=== PATIENT | female | born 1990 | race Caucasian/White ===

== ENCOUNTER 2016-12-25 23:41 | Emergency (ER) | payer OTHER ==
[2016-12-26 02:10] LABS: HEMOGLOBIN 14.8 gm/dl (12.3-15.3); RED BLOOD COUNT 4.71 M/UL (4.00-5.10); WHITE BLOOD COUNT 14.4 K/UL (4.5-11.0)
[2016-12-26 02:35] LABS: BUN/CREATININE RATIO 13 (0-10)
== END 2016-12-26 05:10 | disposition home or self-care (01) ==
LOC: ER1 23:41
PROVIDERS: Emergency Medicine
DX: S20.211A Contusion of right front wall of thorax, initial encounter (principal); L03.031 Cellulitis of right toe; K60.2 Anal fissure, unspecified; K62.5 Hemorrhage of anus and rectum; F17.210 Nicotine dependence, cigarettes, uncomplicated; Z88.0 Allergy status to penicillin; Y04.2XXA Assault by strike against or bumped into by another person, initial encounter; Y93.01 Activity, walking, marching and hiking
CPT/HCPCS: 36415; 71010; 80053; 80307; 81001; 85025; 87086; 99284

== ENCOUNTER 2020-11-14 05:22 | Inpatient (IN) | payer OTHER ==
[~2020-11-14] VITALS: Ht 160 cm; Wt 81.6 kg
[~2020-11-14 05:22] MED LIST: COLACE 100MG C100 MG PO; IBUPROFEN600 MG PO; LABETALOL HCL200 MG PO; LORTAB 5-325 M1 EACH PO; PEPCID20 MG PO; PHENERGAN 25 MG25 M1 PO; PRENATAL VITAM1 EAC3 PO; TYLENOL325 M1 PO
[2020-11-14 05:36] LABS: HEMOGLOBIN 13.2 gm/dl (12.3-15.3); RED BLOOD COUNT 4.05 M/UL (4.00-5.10); WHITE BLOOD COUNT 12.9 K/UL (4.5-11.0)
[2020-11-14 05:56] LABS: BUN/CREATININE RATIO 18 (0-10)
[2020-11-14] MEDS ORDERED: DOCUSATE SODIU100 MG PO (09:57)
[2020-11-14] MEDS ORDERED: TRANDATE 200 M200 MG PO (09:57)
[2020-11-14] MEDS ORDERED: IBUPROFEN800 MG PO (09:57)
[2020-11-14] MEDS ORDERED: HYDROCODONE-AC1 EAC1 PO (09:57)
[2020-11-15 08:14] LABS: HBSAG SCREEN Negative (Negative); HIV SCREEN 4TH GENERATION WRFX Non Reactive (Non Reactive)
[2020-11-15 09:14] LABS: RPR Non Reactive (Non Reactive); RUBELLA ANTIBODIES, IGG 2.54 index (Immune >0.99)
[2020-11-15 11:51] LABS: HEMOGLOBIN 12.5 gm/dl (12.3-15.3); RED BLOOD COUNT 3.86 M/UL (4.00-5.10); WHITE BLOOD COUNT 9.5 K/UL (4.5-11.0)
[2020-11-15 12:15] LABS: BUN/CREATININE RATIO 14 (0-10)
[2020-11-15 14:14] LABS: TREPONEMA PALLIDUM ANTIBODIES Non Reactive (Non Reactive)
[2020-11-15 19:08] LABS: CHLAMYDIA TRACHOMATIS, NAA Negative (Negative); NEISSERIA GONORRHOEAE, NAA Negative (Negative)
[2020-11-16 20:23] LABS: HEMOGLOBIN 12.4 gm/dl (12.3-15.3); RED BLOOD COUNT 3.88 M/UL (4.00-5.10); WHITE BLOOD COUNT 11.3 K/UL (4.5-11.0)
[2020-11-16 20:53] LABS: BUN/CREATININE RATIO 18 (0-10)
[2020-11-17] MEDS ORDERED: PROZAC40 MG PO (16:44)
[2020-11-17] MEDS ORDERED: PROAIR HFA8.5 GM INH (16:44)
[2020-11-17] MEDS ORDERED: WIXELA 250-501 EACH INH (16:44)
[2020-11-18] MEDS ORDERED: PROCARDIA XL30 MG PO (07:16)
[2020-11-18] MEDS ORDERED: HYDROCODONE-AC1 EAC1 PO (08:18)
[2020-11-18 11:10] LABS: AMPHETAMINE Positive (.); AMPHETAMINE GC/MS CONF 2352 ng/mL (Cutoff=500); AMPHETAMINES Positive (Cutoff=1000); AMPHETAMINES, URINE See Final Results ng/mL (Cutoff=1000); BARBITURATE Negative ng/mL (Cutoff=200); BENZODIAZEPINES Negative ng/mL (Cutoff=200); CANNABINOIDS Negative ng/mL (Cutoff=20); COCAINE (METABOLITE) Negative ng/mL (Cutoff=300); CREATININE 94.9 mg/dL (20.0-300.0); MEPERIDINE Negative ng/mL (Cutoff=200); METHADONE Negative ng/mL (Cutoff=300); METHAMPHETAMINE Positive (.); METHAMPHETAMINE GC/MS CONF >3000 ng/mL (Cutoff=500); OPIATES Negative ng/mL (Cutoff=300); PHENCYCLIDINE Negative ng/mL (Cutoff=25); PROPOXYPHENE Negative ng/mL (Cutoff=300)
== END 2020-11-18 09:55 | disposition home or self-care (01) | DRG 786 ==
LOC: GENOP 05:22 → OB 07:02 → PROG CARE 11-15 14:52 → OB 11-16 11:20
PROVIDERS: Obstetrics & Gynecology; ADMIT Obstetrics & Gynecology
PROC: 4A1HX4Z Monitoring of Products of Conception, Cardiac Electrical Activity, External Approach (ICD-10-PCS; 2020-11-14)
PROC: 10D00Z1 Extraction of Products of Conception, Low, Open Approach (ICD-10-PCS; principal; 2020-11-14 06:28)
DX: O14.14 Severe pre-eclampsia complicating childbirth (principal); J96.01 Acute respiratory failure with hypoxia; O98.42 Viral hepatitis complicating childbirth; J98.11 Atelectasis; Z20.822 Contact with and (suspected) exposure to COVID-19; Z3A.36 36 weeks gestation of pregnancy; Z37.0 Single live birth; B19.20 Unspecified viral hepatitis C without hepatic coma; O99.324 Drug use complicating childbirth; O76 Abnormality in fetal heart rate and rhythm complicating labor and delivery; O99.344 Other mental disorders complicating childbirth; O99.72 Diseases of the skin and subcutaneous tissue complicating childbirth; L25.9 Unspecified contact dermatitis, unspecified cause; F32.9 Major depressive disorder, single episode, unspecified; F41.9 Anxiety disorder, unspecified; O99.52 Diseases of the respiratory system complicating childbirth; F15.10 Other stimulant abuse, uncomplicated; J45.909 Unspecified asthma, uncomplicated
CPT/HCPCS: 36415; 36600; 71045; 71046; 80053; 80307; 81001; 82570; 82800; 82803; 82962; 83518; 83735; 83880; 84156; 85014; 85018; 85025; 85384; 86592; 86762; 86780; 86850; 86900; 86901; 87206; 87340; 87389; 87661; 93005; 94640; 94664; 94760; C9113; J0610; J1200; J1580; J1650; J1885; J1940; J2270; J2274; J2370; J2405; J2590; J3010; J3475; J7120; Q9967; U0002